=== PATIENT | male | born 1955 | race African-American/Black ===

== ENCOUNTER 2019-08-27 23:49 | Inpatient (IN) | payer MEDICARE, OTHER ==
[~2019-08-27] VITALS: Ht 182.9 cm; Wt 84.8 kg
[2019-08-28] VITALS (8 sets, daily range): BP systolic 106–150; BP diastolic 54–88
[2019-08-28] MEDS ORDERED: NITROGLYCERIN OINT 1GM/INCH UDPKT TD ONE (00:15)
[2019-08-28] MEDS ORDERED: FUROSEMIDE 40MG/4ML VIAL IV ONE (00:15)
[2019-08-28 01:02] LABS: HEMATOCRIT. 40.6 % (42.0-52.0); HEMOGLOBIN. 12.6 g/dL (14.0-18.0); MEAN CORPUSCULAR HEMOGLOBIN 25.7 pg (28.0-32.0); MEAN CORPUSCULAR VOLUME 82.5 fL (80.0-94.0); MEAN PLATELET VOLUME 8.7 fl (7.4-10.4); PLATELET 357 x1000/uL (130-400); RED BLOOD CELL COUNT 4.91 mill/uL (4.7-6.1); RED CELL DISTRIBUTION WIDTH 16.9 % (11.6-14.6)
[2019-08-28 01:06] LABS: CHLORIDE 104 mEq/L (98-107)
[2019-08-28] MEDS ORDERED: ASPIRIN 325MG EC TABLET PO ONE (02:15)
[2019-08-28 03:58] LABS: PLATELET ESTIMATE NORMAL
[2019-08-28] MEDS ORDERED: NITROGLYCERIN 0.4MG TABLET SL SL ONE (06:45)
[2019-08-28] MEDS ORDERED: DIPHENHYDRAMINE 50MG/ML VIAL IV PRN (07:45)
[2019-08-28] MEDS ORDERED: MORPHINE SULFATE 2 MG/ML CPJ (NOT FOR IM USE) IV PRN (07:45)
[2019-08-28] MEDS ORDERED: NA PHOS,M-B/NA PHOS,DI-BA ENEMA 118ML PR PRN (07:45)
[2019-08-28] MEDS ORDERED: MAGNESIUM/ALUMINUM HYDROXIDE/SIMETHICONE 30ML UDC PO PRN (07:45)
[2019-08-28] MEDS ORDERED: LORAZEPAM 2MG/ML CPJ IV PRN (07:45)
[2019-08-28] MEDS ORDERED: CLONIDINE 0.1MG TABLET PO PRN (07:45)
[2019-08-28] MEDS ORDERED: GUAIFENESIN 200MG/10ML SUGAR FREE UDC PO PRN (07:45)
[2019-08-28] MEDS ORDERED: ONDANSETRON HCL 4MG/2ML INJ IV PRN (07:45)
[2019-08-28] MEDS ORDERED: HYDROCODONE/ACETAMINOPHEN 5/325MG TABLET PO PRN (07:45)
[2019-08-28] MEDS ORDERED: ACETAMINOPHEN 325MG TABLET PO PRN (07:45)
[2019-08-28] MEDS: IPRATROPIUM/ALBUTEROL 0.5-3(2.5)MG/3ML NEB NEB PRN ×2 (10:51→13:19)
[2019-08-28] MEDS ORDERED: METHYLPREDNISOLONE SOD SUCC 125 MG/2 ML VIAL IV SCH (12:00)
[2019-08-28] MEDS: FUROSEMIDE 40MG/4ML VIAL IV SCH (13:13)
[2019-08-28] MEDS: ENOXAPARIN 40MG/0.4ML SYR SUBCUT SCH (13:14)
[2019-08-28] MEDS: LEVOFLOXACIN 500MG PREMIX 100 ML IV SCH (13:28)
[2019-08-28 16:32] LABS: BG BASE EXCESS 3.7 mmol/L (-2.0-2.0); BG BILEVEL POS AIRWAY PRESSURE 15/5; BG DEOXYHEMOGLOBIN 3.6 % (0.0-5.0); BG FRACTION INSPIRED OXYGEN 60; BG METHEMOGLOBIN 0.5 % (0.0-1.5); BG OXYGEN SATURATION 96.3 % (92.0-98.5); BG OXYHEMOGLOBIN 94.9 % (94.0-97.0); BG PCO2 75.5 mmHg (35.0-45.0); BG PH 7.258 (7.350-7.450); BG PO2 99.1 mmHg (75.0-100.0); BG SAMPLE SITE RIGHT RADIAL; BG TOTAL HEMOGLOBIN 12.5 g/dL (12.0-18.0); BG VENT MODE MASK - BIPAP; BG VENT RATE 15 set
[2019-08-28 16:58] LABS: CHLORIDE 105 mEq/L (98-107)
[2019-08-28] MEDS: IPRATROPIUM/ALBUTEROL 0.5-3(2.5)MG/3ML NEB HHN SCH ×2 (17:06→20:11)
[2019-08-28 17:09] LABS: CREATINE KINASE 265 IU/L (39-308)
[2019-08-28 17:11] LABS: CREATINE KINASE MB FRACTION 2.5 ng/mL (0.5-3.6)
[2019-08-28] MEDS: METHYLPREDNISOLONE SOD SUCC 40 MG/ML VIAL IV SCH ×2 (18:31→23:47)
[2019-08-28 21:26] LABS: BG BASE EXCESS 3.2 mmol/L (-2.0-2.0); BG BILEVEL POS AIRWAY PRESSURE 15/5; BG CARBOXYHEMOGLOBIN 1.1 % (0.5-1.5); BG DEOXYHEMOGLOBIN 12.6 % (0.0-5.0); BG FRACTION INSPIRED OXYGEN 60; BG HCO3 ACT 30.1 mmol/L (22.0-26.0); BG METHEMOGLOBIN 0.4 % (0.0-1.5); BG OXYGEN SATURATION 87.2 % (92.0-98.5); BG OXYHEMOGLOBIN 85.9 % (94.0-97.0); BG PCO2 56.6 mmHg (35.0-45.0); BG PH 7.344 (7.350-7.450); BG PO2 56.2 mmHg (75.0-100.0); BG SAMPLE SITE RIGHT RADIAL; BG TOTAL HEMOGLOBIN 12.9 g/dL (12.0-18.0); BG VENT MODE MASK - BIPAP
[2019-08-28 23:50] LABS: CREATINE KINASE MB FRACTION 1.4 ng/mL (0.5-3.6)
[2019-08-29] VITALS (12 sets, daily range): BP systolic 113–146; BP diastolic 57–89
[2019-08-29] MEDS: IPRATROPIUM/ALBUTEROL 0.5-3(2.5)MG/3ML NEB HHN SCH ×6 (00:12→21:00)
[2019-08-29] MEDS: METHYLPREDNISOLONE SOD SUCC 40 MG/ML VIAL IV SCH ×3 (05:57→17:27)
[2019-08-29 06:41] LABS: HEMATOCRIT. 36.8 % (42.0-52.0); HEMOGLOBIN. 11.3 g/dL (14.0-18.0); MEAN CORPUSCULAR HEMOGLOBIN 25.6 pg (28.0-32.0); MEAN CORPUSCULAR VOLUME 83.3 fL (80.0-94.0); MEAN PLATELET VOLUME 8.8 fl (7.4-10.4); PLATELET 308 x1000/uL (130-400); RED BLOOD CELL COUNT 4.42 mill/uL (4.7-6.1); RED CELL DISTRIBUTION WIDTH 16.5 % (11.6-14.6)
[2019-08-29 08:11] LABS: CHLORIDE 103 mEq/L (98-107)
[2019-08-29 08:25] LABS: CREATINE KINASE 156 IU/L (39-308); LDL CHOLESTEROL 48 mg/dL (5-100)
[2019-08-29 08:26] LABS: CREATINE KINASE MB FRACTION 1.1 ng/mL (0.5-3.6); HDL CHOLESTEROL 34 mg/dL (40-59)
[2019-08-29 08:27] LABS: T4 FREE 1.16 ng/dL (0.76-1.46)
[2019-08-29 09:08] LABS: PLATELET ESTIMATE NORMAL
[2019-08-29] MEDS: FUROSEMIDE 40MG/4ML VIAL IV SCH (09:56)
[2019-08-29] MEDS: ASPIRIN 81MG EC TABLET PO SCH (09:56)
[2019-08-29] MEDS: ENOXAPARIN 40MG/0.4ML SYR SUBCUT SCH (12:11)
[2019-08-29] MEDS: LEVOFLOXACIN 500MG PREMIX 100 ML IV SCH (14:42)
[2019-08-30] VITALS (9 sets, daily range): BP systolic 113–162; BP diastolic 37–93
[2019-08-30] MEDS: IPRATROPIUM/ALBUTEROL 0.5-3(2.5)MG/3ML NEB HHN SCH ×5 (00:52→20:00)
[2019-08-30] MEDS: METHYLPREDNISOLONE SOD SUCC 40 MG/ML VIAL IV SCH ×3 (01:22→12:02)
[2019-08-30 06:18] LABS: HEMATOCRIT. 37.2 % (42.0-52.0); HEMOGLOBIN. 11.6 g/dL (14.0-18.0); MEAN CORPUSCULAR HEMOGLOBIN 25.8 pg (28.0-32.0); MEAN CORPUSCULAR VOLUME 82.7 fL (80.0-94.0); MEAN PLATELET VOLUME 8.8 fl (7.4-10.4); PLATELET 353 x1000/uL (130-400); RED BLOOD CELL COUNT 4.49 mill/uL (4.7-6.1); RED CELL DISTRIBUTION WIDTH 16.5 % (11.6-14.6)
[2019-08-30 06:40] LABS: CHLORIDE 101 mEq/L (98-107)
[2019-08-30] MEDS: FUROSEMIDE 40MG/4ML VIAL IV SCH (08:46)
[2019-08-30] MEDS: ASPIRIN 81MG EC TABLET PO SCH (08:46)
[2019-08-30 09:30] LABS: BG BASE EXCESS 7.7 mmol/L (-2.0-2.0); BG CARBOXYHEMOGLOBIN 0.5 % (0.5-1.5); BG DEOXYHEMOGLOBIN 12.3 % (0.0-5.0); BG FRACTION INSPIRED OXYGEN 36; BG METHEMOGLOBIN 0.3 % (0.0-1.5); BG OXYGEN SATURATION 87.6 % (92.0-98.5); BG OXYHEMOGLOBIN 86.9 % (94.0-97.0); BG PCO2 69.7 mmHg (35.0-45.0); BG PH 7.331 (7.350-7.450); BG PO2 54.6 mmHg (75.0-100.0); BG SAMPLE SITE LEFT BRACHIAL; BG TOTAL HEMOGLOBIN 12.8 g/dL (12.0-18.0); BG VENT MODE NASAL CANNULA
[2019-08-30 11:01] LABS: PLATELET ESTIMATE NORMAL
[2019-08-30] MEDS: ENOXAPARIN 40MG/0.4ML SYR SUBCUT SCH (12:02)
[2019-08-30] MEDS: LEVOFLOXACIN 500MG PREMIX 100 ML IV SCH (13:20)
[2019-08-30 15:42] LABS: BG BASE EXCESS 10.4 mmol/L (-2.0-2.0); BG CARBOXYHEMOGLOBIN 0.9 % (0.5-1.5); BG DEOXYHEMOGLOBIN 3.7 % (0.0-5.0); BG HCO3 ACT 38.2 mmol/L (22.0-26.0); BG METHEMOGLOBIN 0.3 % (0.0-1.5); BG OXYGEN SATURATION 96.3 % (92.0-98.5); BG OXYHEMOGLOBIN 95.1 % (94.0-97.0); BG PH 7.374 (7.350-7.450); BG PO2 82.9 mmHg (75.0-100.0); BG SAMPLE SITE RIGHT RADIAL; BG TOTAL HEMOGLOBIN 13.1 g/dL (12.0-18.0); BG VENT MODE VAPOTHERM
[2019-08-30] MEDS: PREDNISONE 20MG TABLET PO SCH (17:54)
[2019-08-31] VITALS (7 sets, daily range): BP systolic 134–157; BP diastolic 66–96
[2019-08-31] MEDS: IPRATROPIUM/ALBUTEROL 0.5-3(2.5)MG/3ML NEB HHN SCH ×5 (01:02→20:56)
[2019-08-31] MEDS: PREDNISONE 20MG TABLET PO SCH ×2 (08:54→17:15)
[2019-08-31] MEDS: ASPIRIN 81MG EC TABLET PO SCH (08:54)
[2019-08-31] MEDS ORDERED: LIDOCAINE HCL 1% 20ML VIAL (Pyxis) INJ ONE (12:04)
[2019-08-31] MEDS: LEVOFLOXACIN 500MG TABLET PO SCH (13:06)
[2019-08-31] MEDS: ENOXAPARIN 40MG/0.4ML SYR SUBCUT SCH (13:06)
[2019-08-31] MEDS: FUROSEMIDE 40MG TABLET PO SCH (13:07)
[2019-08-31] MEDS: BUDESONIDE 0.5MG/2ML NEB HHN SCH ×2 (17:31→20:56)
[2019-08-31] MEDS: GUAIFENESIN 600MG ER TABLET PO SCH (22:02)
[2019-09-01] VITALS (10 sets, daily range): BP systolic 120–164; BP diastolic 43–91
[2019-09-01] MEDS: IPRATROPIUM/ALBUTEROL 0.5-3(2.5)MG/3ML NEB HHN SCH ×6 (00:30→20:47)
[2019-09-01 07:22] LABS: HEMATOCRIT. 38.2 % (42.0-52.0); HEMOGLOBIN. 11.9 g/dL (14.0-18.0); MEAN CORPUSCULAR HEMOGLOBIN 25.6 pg (28.0-32.0); MEAN CORPUSCULAR VOLUME 82.4 fL (80.0-94.0); MEAN PLATELET VOLUME 9.2 fl (7.4-10.4); PLATELET 334 x1000/uL (130-400); RED BLOOD CELL COUNT 4.64 mill/uL (4.7-6.1); RED CELL DISTRIBUTION WIDTH 16.6 % (11.6-14.6)
[2019-09-01 07:34] LABS: CHLORIDE 99 mEq/L (98-107)
[2019-09-01] MEDS: BUDESONIDE 0.5MG/2ML NEB HHN SCH ×2 (08:00→20:47)
[2019-09-01] MEDS: GUAIFENESIN 600MG ER TABLET PO SCH ×2 (08:44→22:00)
[2019-09-01] MEDS: FUROSEMIDE 40MG TABLET PO SCH (08:44)
[2019-09-01] MEDS: ASPIRIN 81MG EC TABLET PO SCH (08:44)
[2019-09-01] MEDS: PREDNISONE 20MG TABLET PO SCH ×2 (08:44→16:08)
[2019-09-01] MEDS: LEVOFLOXACIN 500MG TABLET PO SCH (12:37)
[2019-09-01] MEDS: ENOXAPARIN 40MG/0.4ML SYR SUBCUT SCH (12:37)
[2019-09-01 13:22] LABS: BG BASE EXCESS 14.2 mmol/L (-2.0-2.0); BG CARBOXYHEMOGLOBIN 1.1 % (0.5-1.5); BG HCO3 ACT 42.9 mmol/L (22.0-26.0); BG METHEMOGLOBIN 0.3 % (0.0-1.5); BG OXYGEN SATURATION 91.9 % (92.0-98.5); BG OXYHEMOGLOBIN 90.6 % (94.0-97.0); BG PCO2 73.8 mmHg (35.0-45.0); BG PH 7.382 (7.350-7.450); BG PO2 63.9 mmHg (75.0-100.0); BG SAMPLE SITE RIGHT RADIAL; BG TOTAL HEMOGLOBIN 13.7 g/dL (12.0-18.0); BG VENT MODE VAPOTHERM
[2019-09-01] MEDS ORDERED: METHYLPREDNISOLONE SOD SUCC 40 MG/ML VIAL IV SCH (15:00)
[2019-09-01 15:26] LABS: PLATELET ESTIMATE NORMAL
[2019-09-02] VITALS (10 sets, daily range): BP systolic 112–150; BP diastolic 47–84
[2019-09-02] MEDS: IPRATROPIUM/ALBUTEROL 0.5-3(2.5)MG/3ML NEB HHN SCH ×6 (00:38→20:06)
[2019-09-02] MEDS: GUAIFENESIN 600MG ER TABLET PO SCH ×2 (08:21→21:06)
[2019-09-02] MEDS: FUROSEMIDE 40MG TABLET PO SCH (08:21)
[2019-09-02] MEDS: ASPIRIN 81MG EC TABLET PO SCH (08:22)
[2019-09-02] MEDS: PREDNISONE 20MG TABLET PO SCH (08:22)
[2019-09-02] MEDS: BUDESONIDE 0.5MG/2ML NEB HHN SCH ×2 (08:53→20:06)
[2019-09-02] MEDS: LEVOFLOXACIN 500MG TABLET PO SCH (12:57)
[2019-09-02] MEDS: ENOXAPARIN 40MG/0.4ML SYR SUBCUT SCH (12:57)
[2019-09-02] MEDS: ACETYLCYSTEINE 100MG/ML 10% VIAL 4ML INH SCH (16:35)
[2019-09-03] VITALS (7 sets, daily range): BP systolic 110–138; BP diastolic 51–77
[2019-09-03] MEDS: IPRATROPIUM/ALBUTEROL 0.5-3(2.5)MG/3ML NEB HHN SCH ×6 (00:17→20:29)
[2019-09-03] MEDS: ACETYLCYSTEINE 100MG/ML 10% VIAL 4ML INH SCH ×3 (00:17→16:04)
[2019-09-03 06:20] LABS: BASOPHILS % 0.7 % (0.0-2.0); EOSINOPHILS % 5.9 % (0.0-5.0); HEMATOCRIT. 43.9 % (42.0-52.0); HEMOGLOBIN. 13.8 g/dL (14.0-18.0); LYMPHOCYTES % 15.2 % (20.0-50.0); MEAN CORPUSCULAR HEMOGLOBIN 25.6 pg (28.0-32.0); MEAN CORPUSCULAR VOLUME 81.3 fL (80.0-94.0); MEAN PLATELET VOLUME 8.6 fl (7.4-10.4); MONOCYTES % 11.2 % (2.0-8.0); PLATELET 342 x1000/uL (130-400); RED BLOOD CELL COUNT 5.39 mill/uL (4.7-6.1); RED CELL DISTRIBUTION WIDTH 16.6 % (11.6-14.6)
[2019-09-03 06:28] LABS: CHLORIDE 96 mEq/L (98-107)
[2019-09-03] MEDS: BUDESONIDE 0.5MG/2ML NEB HHN SCH (08:42)
[2019-09-03] MEDS: ASPIRIN 81MG EC TABLET PO SCH (09:25)
[2019-09-03] MEDS: GUAIFENESIN 600MG ER TABLET PO SCH ×2 (09:25→21:21)
[2019-09-03] MEDS: PREDNISONE 20MG TABLET PO SCH (09:25)
[2019-09-03] MEDS: FUROSEMIDE 40MG TABLET PO SCH (09:25)
[2019-09-03] MEDS: LEVOFLOXACIN 500MG TABLET PO SCH (12:13)
[2019-09-03] MEDS: ENOXAPARIN 40MG/0.4ML SYR SUBCUT SCH (12:14)
[2019-09-04] VITALS (10 sets, daily range): BP systolic 104–195; BP diastolic 50–129
[2019-09-04] MEDS: IPRATROPIUM/ALBUTEROL 0.5-3(2.5)MG/3ML NEB HHN SCH ×6 (00:36→20:29)
[2019-09-04] MEDS: ACETYLCYSTEINE 100MG/ML 10% VIAL 4ML INH SCH ×3 (00:36→15:57)
[2019-09-04 06:32] LABS: BASOPHILS % 0.3 % (0.0-2.0); HEMATOCRIT. 41.3 % (42.0-52.0); HEMOGLOBIN. 12.9 g/dL (14.0-18.0); LYMPHOCYTES % 13.5 % (20.0-50.0); MEAN CORPUSCULAR HEMOGLOBIN 25.5 pg (28.0-32.0); MEAN CORPUSCULAR VOLUME 81.3 fL (80.0-94.0); MEAN PLATELET VOLUME 9.2 fl (7.4-10.4); MONOCYTES % 10.1 % (2.0-8.0); NEUTROPHILS % 71.1 % (40.0-76.0); PLATELET 311 x1000/uL (130-400); RED BLOOD CELL COUNT 5.07 mill/uL (4.7-6.1); RED CELL DISTRIBUTION WIDTH 16.8 % (11.6-14.6)
[2019-09-04 06:36] LABS: CHLORIDE 95 mEq/L (98-107)
[2019-09-04 07:38] LABS: BG BASE EXCESS 9.7 mmol/L (-2.0-2.0); BG CARBOXYHEMOGLOBIN 0.6 % (0.5-1.5); BG DEOXYHEMOGLOBIN 4.5 % (0.0-5.0); BG HCO3 ACT 37.4 mmol/L (22.0-26.0); BG METHEMOGLOBIN 0.2 % (0.0-1.5); BG OXYGEN SATURATION 95.5 % (92.0-98.5); BG OXYHEMOGLOBIN 94.7 % (94.0-97.0); BG PCO2 64.8 mmHg (35.0-45.0); BG PH 7.379 (7.350-7.450); BG SAMPLE SITE RIGHT RADIAL; BG TOTAL HEMOGLOBIN 13.7 g/dL (12.0-18.0); BG VENT MODE VAPOTHERM
[2019-09-04] MEDS ORDERED: LIDOCAINE HCL/PF 1% 2ML VIAL ONE (09:21)
[2019-09-04] MEDS: PREDNISONE 20MG TABLET PO SCH (09:56)
[2019-09-04] MEDS: ASPIRIN 81MG EC TABLET PO SCH (09:56)
[2019-09-04] MEDS: GUAIFENESIN 600MG ER TABLET PO SCH ×2 (09:56→21:40)
[2019-09-04] MEDS: FUROSEMIDE 40MG TABLET PO SCH (09:56)
[2019-09-04] MEDS: ENOXAPARIN 40MG/0.4ML SYR SUBCUT SCH (12:37)
[2019-09-04] MEDS: DOCUSATE SODIUM 100MG CAPSULE PO PRN (12:46)
[2019-09-04] MEDS: LEVOFLOXACIN 500MG TABLET PO SCH (12:46)
[2019-09-05] VITALS (9 sets, daily range): BP systolic 101–146; BP diastolic 61–89
[2019-09-05] MEDS: ACETYLCYSTEINE 100MG/ML 10% VIAL 4ML INH SCH ×3 (00:55→16:17)
[2019-09-05] MEDS: IPRATROPIUM/ALBUTEROL 0.5-3(2.5)MG/3ML NEB HHN SCH ×6 (00:56→20:26)
[2019-09-05 07:30] LABS: BASOPHILS % 0.8 % (0.0-2.0); EOSINOPHILS % 5.6 % (0.0-5.0); HEMATOCRIT. 40.3 % (42.0-52.0); HEMOGLOBIN. 12.6 g/dL (14.0-18.0); LYMPHOCYTES % 15.5 % (20.0-50.0); MEAN CORPUSCULAR HEMOGLOBIN 25.4 pg (28.0-32.0); MEAN CORPUSCULAR VOLUME 81.3 fL (80.0-94.0); MONOCYTES % 12.5 % (2.0-8.0); NEUTROPHILS % 65.6 % (40.0-76.0); PLATELET 300 x1000/uL (130-400); RED BLOOD CELL COUNT 4.96 mill/uL (4.7-6.1); RED CELL DISTRIBUTION WIDTH 16.7 % (11.6-14.6)
[2019-09-05 07:40] LABS: CHLORIDE 99 mEq/L (98-107)
[2019-09-05] MEDS: FUROSEMIDE 40MG TABLET PO SCH (08:06)
[2019-09-05] MEDS: ASPIRIN 81MG EC TABLET PO SCH (08:06)
[2019-09-05] MEDS: PREDNISONE 20MG TABLET PO SCH (08:06)
[2019-09-05] MEDS: GUAIFENESIN 600MG ER TABLET PO SCH ×2 (08:06→21:14)
[2019-09-05] MEDS: ENOXAPARIN 40MG/0.4ML SYR SUBCUT SCH (13:13)
[2019-09-05] MEDS: LEVOFLOXACIN 500MG TABLET PO SCH (13:13)
[2019-09-05 15:10] LABS: BG BASE EXCESS 7.6 mmol/L (-2.0-2.0); BG CARBOXYHEMOGLOBIN 0.7 % (0.5-1.5); BG DEOXYHEMOGLOBIN 6.9 % (0.0-5.0); BG FRACTION INSPIRED OXYGEN 28; BG HCO3 ACT 34.3 mmol/L (22.0-26.0); BG METHEMOGLOBIN 0.4 % (0.0-1.5); BG PCO2 56.7 mmHg (35.0-45.0); BG PH 7.399 (7.350-7.450); BG PO2 68.2 mmHg (75.0-100.0); BG SAMPLE SITE RIGHT RADIAL; BG TOTAL HEMOGLOBIN 13.6 g/dL (12.0-18.0); BG VENT MODE NASAL CANNULA
[2019-09-05] MEDS: DOCUSATE SODIUM 100MG CAPSULE PO PRN (21:14)
[2019-09-06] VITALS (11 sets, daily range): BP systolic 99–140; BP diastolic 29–80
[2019-09-06] MEDS: IPRATROPIUM/ALBUTEROL 0.5-3(2.5)MG/3ML NEB HHN SCH ×5 (01:01→16:32)
[2019-09-06] MEDS: ACETYLCYSTEINE 100MG/ML 10% VIAL 4ML INH SCH ×3 (01:01→16:32)
[2019-09-06] MEDS: GUAIFENESIN 600MG ER TABLET PO SCH (08:02)
[2019-09-06] MEDS: ASPIRIN 81MG EC TABLET PO SCH (08:03)
[2019-09-06] MEDS: FUROSEMIDE 40MG TABLET PO SCH (08:03)
[2019-09-06] MEDS ORDERED: PREDNISONE 20MG TABLET PO SCH (09:00)
[2019-09-06 11:44] LABS: BASOPHILS % 0.6 % (0.0-2.0); EOSINOPHILS % 4.2 % (0.0-5.0); HEMATOCRIT. 40.2 % (42.0-52.0); HEMOGLOBIN. 12.7 g/dL (14.0-18.0); LYMPHOCYTES % 10.2 % (20.0-50.0); MEAN CORPUSCULAR HEMOGLOBIN 25.9 pg (28.0-32.0); MEAN CORPUSCULAR VOLUME 81.7 fL (80.0-94.0); MEAN PLATELET VOLUME 9.2 fl (7.4-10.4); MONOCYTES % 10.3 % (2.0-8.0); NEUTROPHILS % 74.7 % (40.0-76.0); PLATELET 295 x1000/uL (130-400); RED BLOOD CELL COUNT 4.92 mill/uL (4.7-6.1); RED CELL DISTRIBUTION WIDTH 16.8 % (11.6-14.6)
[2019-09-06 12:21] LABS: CHLORIDE 97 mEq/L (98-107)
[2019-09-06] MEDS: LEVOFLOXACIN 500MG TABLET PO SCH (12:48)
[2019-09-06] MEDS: ENOXAPARIN 40MG/0.4ML SYR SUBCUT SCH (12:49)
== END 2019-09-06 20:30 | DRG 871 ==
LOC: ER 08-28 00:27 → EDBEDREQTM 08-28 04:10 → EDBEDREQ 08-28 04:10 → ENRESERV 08-28 07:01 → CANRESERV 08-28 07:01 → ENRESERV 08-28 07:48 → 5EST 08-28 11:22
PROVIDERS: ADMIT Internal Medicine; ATTEND Internal Medicine
PROC: 5A09457 Assistance with Respiratory Ventilation, 24-96 Consecutive Hours, Continuous Positive Airway Pressure (ICD-10-PCS; principal; 2019-08-28)
PROC: 5A09357 Assistance with Respiratory Ventilation, Less than 24 Consecutive Hours, Continuous Positive Airway Pressure (ICD-10-PCS; 2019-09-01)
DX: A41.9 Sepsis, unspecified organism (principal); I50.43 Acute on chronic combined systolic (congestive) and diastolic (congestive) heart failure; J96.21 Acute and chronic respiratory failure with hypoxia; J96.22 Acute and chronic respiratory failure with hypercapnia; G82.50 Quadriplegia, unspecified; J18.1 Lobar pneumonia, unspecified organism; J44.1 Chronic obstructive pulmonary disease with (acute) exacerbation; E44.1 Mild protein-calorie malnutrition; J44.0 Chronic obstructive pulmonary disease with (acute) lower respiratory infection; E87.2 Acidosis; N39.0 Urinary tract infection, site not specified; I11.0 Hypertensive heart disease with heart failure; E11.9 Type 2 diabetes mellitus without complications; E78.5 Hyperlipidemia, unspecified; I25.10 Atherosclerotic heart disease of native coronary artery without angina pectoris; I27.20 Pulmonary hypertension, unspecified; F03.90 Unspecified dementia, unspecified severity, without behavioral disturbance, psychotic disturbance, mood disturbance, and anxiety; R13.10 Dysphagia, unspecified; Z87.891 Personal history of nicotine dependence; Z91.19 Patient's noncompliance with other medical treatment and regimen; Z99.81 Dependence on supplemental oxygen; Z68.25 Body mass index [BMI] 25.0-25.9, adult
CPT/HCPCS: 36415; 36600; 71045; 71250; 80048; 80061; 82375; 82550; 82553; 82805; 83036; 83880; 84439; 84443; 84484; 85379; 92950; 93005; 93306; 93970; 94640; 94660; 94667; 97162; 99285; J1200; J1650; J1940; J1956; J2920; J2930; J3490; J7512; J7608; J7620; J7626

== ENCOUNTER 2022-08-22 12:11 | Inpatient (IN) | payer MEDICARE, OTHER ==
[~2022-08-22] VITALS: Ht 170.2 cm; Wt 94.3 kg
[2022-08-22] MEDS ORDERED: ALBUTEROL (0.083%) 2.5MG/3ML NEB HHN STA (13:53)
[2022-08-22] MEDS ORDERED: METHYLPREDNISOLONE SOD SUCC 125 MG/2 ML VIAL IV STA (13:53)
[2022-08-22] MEDS ORDERED: IPRATROPIUM BROMIDE (0.02%) 0.5MG/2.5ML NEB HHN STA (13:53)
[2022-08-22] MEDS ORDERED: FUROSEMIDE 40MG/4ML VIAL IV ONE (14:00)
[2022-08-22 14:24] LABS: BG BASE EXCESS 1.7 mmol/L (-2.0-2.0); BG CARBOXYHEMOGLOBIN 2.2 % (0.5-1.5); BG DEOXYHEMOGLOBIN 13.7 % (0.0-5.0); BG FRACTION INSPIRED OXYGEN 40; BG HCO3 ACT 32.4 mmol/L (22.0-26.0); BG METHEMOGLOBIN 0.3 % (0.0-1.5); BG OXYGEN SATURATION 85.9 % (92.0-98.5); BG OXYHEMOGLOBIN 83.8 % (94.0-97.0); BG PCO2 82.4 mmHg (35.0-45.0); BG PH 7.212 (7.350-7.450); BG PO2 61.7 mmHg (75.0-100.0); BG SAMPLE SITE RIGHT RADIAL; BG TOTAL HEMOGLOBIN 14.8 g/dL (12.0-18.0); BG VENT MODE NASAL CANNULA
[2022-08-22 15:48] LABS: HEMATOCRIT. 41.1 % (42.0-52.0); HEMOGLOBIN. 12.6 g/dL (14.0-18.0); MEAN CORPUSCULAR HEMOGLOBIN 26.7 pg (28.0-32.0); MEAN CORPUSCULAR VOLUME 86.7 fL (80.0-94.0); MEAN PLATELET VOLUME 9.7 fl (7.4-10.4); PLATELET 262 x1000/uL (130-400); RED BLOOD CELL COUNT 4.74 mill/uL (4.7-6.1); RED CELL DISTRIBUTION WIDTH 17.7 % (11.6-14.6)
[2022-08-22 15:55] LABS: CHLORIDE 103 mEq/L (98-107)
[2022-08-22 16:05] LABS: ETHANOL BLOOD < 10 mg/dL
[2022-08-22 17:31] LABS: PLATELET ESTIMATE NORMAL
[2022-08-22 18:14] LABS: BG BASE EXCESS 1.5 mmol/L (-2.0-2.0); BG CARBOXYHEMOGLOBIN 1.7 % (0.5-1.5); BG DEOXYHEMOGLOBIN 6.9 % (0.0-5.0); BG FRACTION INSPIRED OXYGEN 70; BG HCO3 ACT 31.2 mmol/L (22.0-26.0); BG METHEMOGLOBIN 0.2 % (0.0-1.5); BG OXYHEMOGLOBIN 91.2 % (94.0-97.0); BG PCO2 73.3 mmHg (35.0-45.0); BG PH 7.247 (7.350-7.450); BG PO2 76.4 mmHg (75.0-100.0); BG SAMPLE SITE RIGHT BRACHIAL; BG TOTAL HEMOGLOBIN 15.4 g/dL (12.0-18.0); BG VENT MODE MASK - BIPAP
[2022-08-22 22:00] VITALS: BP_SYST 116; BP_SYST 117; BP_DIAS 68; BP_DIAS 75
[2022-08-22] MEDS ORDERED: PNEUMOCOCCAL 23-VAL P-SAC VAC 0.5 ML IM ONE (22:45)
[2022-08-22] MEDS ORDERED: INFLUENZA VACCINE 05/PF 0.5 ML SYRINGE IM ONE (22:45)
[2022-08-22] MEDS ORDERED: HYDROCODONE/ACETAMINOPHEN 5/325MG TABLET PO PRN (23:15)
[2022-08-22] MEDS ORDERED: IPRATROPIUM/ALBUTEROL 0.5-3(2.5)MG/3ML NEB HHN PRN (23:15)
[2022-08-22] MEDS ORDERED: DEXTROSE 50% WATER 50ML SYRINGE IV PRN (23:30)
[2022-08-22] MEDS ORDERED: NALOXONE HCL 0.4MG/ML VIAL IV PRN (23:45)
[2022-08-23] VITALS (32 sets, daily range): BP systolic 76–120; BP diastolic 41–90
[2022-08-23 06:38] LABS: BASOPHILS % 0.4 % (0.0-2.0); EOSINOPHILS % 0.1 % (0.0-5.0); HEMATOCRIT. 47.3 % (42.0-52.0); HEMOGLOBIN. 14.5 g/dL (14.0-18.0); LYMPHOCYTES % 7.4 % (20.0-50.0); MEAN CORPUSCULAR HEMOGLOBIN 26.6 pg (28.0-32.0); MEAN CORPUSCULAR VOLUME 86.8 fL (80.0-94.0); MEAN PLATELET VOLUME 9.3 fl (7.4-10.4); MONOCYTES % 13.3 % (2.0-8.0); NEUTROPHILS % 78.8 % (40.0-76.0); PLATELET 233 x1000/uL (130-400); RED BLOOD CELL COUNT 5.45 mill/uL (4.7-6.1); RED CELL DISTRIBUTION WIDTH 17.8 % (11.6-14.6)
[2022-08-23] MEDS: BLOOD SUGAR DIAGNOSTIC STRIP TEST SCH ×4 (06:50→21:05)
[2022-08-23] MEDS: INSULIN LISPRO 100 UNITS/ML SUBCUT SCH ×4 (07:20→21:00)
[2022-08-23] MEDS: FUROSEMIDE 40MG/4ML VIAL IVP SCH ×2 (08:12→21:05)
[2022-08-23] MEDS: ASPIRIN 81MG TABLET PO SCH (08:12)
[2022-08-23] MEDS: ENOXAPARIN 30MG/0.3ML SYR SUBCUT SCH ×2 (08:13→21:05)
[2022-08-23] MEDS ORDERED: METOPROLOL TARTRATE 25MG TABLET PO SCH (09:00)
[2022-08-23] MEDS ORDERED: LISINOPRIL 10MG TABLET PO SCH (09:00)
[2022-08-23] MEDS: MIDODRINE HCL 5MG TABLET PO SCH ×2 (12:54→16:45)
[2022-08-23 13:00] LABS: BG BASE EXCESS 3.2 mmol/L (-2.0-2.0); BG CARBOXYHEMOGLOBIN 1.4 % (0.5-1.5); BG DEOXYHEMOGLOBIN 38.9 % (0.0-5.0); BG FRACTION INSPIRED OXYGEN 21; BG HCO3 ACT 29.8 mmol/L (22.0-26.0); BG METHEMOGLOBIN 0.1 % (0.0-1.5); BG OXYGEN SATURATION 60.5 % (92.0-98.5); BG OXYHEMOGLOBIN 59.6 % (94.0-97.0); BG PCO2 53.3 mmHg (35.0-45.0); BG PH 7.366 (7.350-7.450); BG SAMPLE SITE LEFT RADIAL; BG TOTAL HEMOGLOBIN 15.2 g/dL (12.0-18.0); BG VENT MODE ROOM AIR
[2022-08-23 17:18] LABS: *AMPHETAMINES SCREEN URINE NEGATIVE (NEGATIVE); *BARBITURATES SCREEN URINE NEGATIVE (NEGATIVE); *BENZODIAZEPINES SCREEN URINE NEGATIVE (NEGATIVE); *COCAINE SCREEN URINE NEGATIVE (NEGATIVE); CANNABINOID URINE SCREEN NEGATIVE (NEGATIVE); METHADONE URINE SCREEN NEGATIVE (NEGATIVE); OPIATES URINE SCREEN NEGATIVE (NEGATIVE); PHENCYCLIDINE URINE SCREEN NEGATIVE (NEGATIVE)
[2022-08-23] MEDS: METHYLPREDNISOLONE SOD SUCC 40 MG/ML VIAL IV SCH (17:53)
[2022-08-23] MEDS: IPRATROPIUM/ALBUTEROL 0.5-3(2.5)MG/3ML NEB HHN SCH ×2 (20:36→23:54)
[2022-08-23] MEDS: ATORVASTATIN CALCIUM 40MG TABLET PO SCH (21:05)
[2022-08-24] VITALS (13 sets, daily range): BP systolic 92–168; BP diastolic 41–89
[2022-08-24] MEDS: METHYLPREDNISOLONE SOD SUCC 40 MG/ML VIAL IV SCH ×3 (03:36→17:50)
[2022-08-24] MEDS: IPRATROPIUM/ALBUTEROL 0.5-3(2.5)MG/3ML NEB HHN SCH ×5 (03:46→20:46)
[2022-08-24] MEDS: BLOOD SUGAR DIAGNOSTIC STRIP TEST SCH ×4 (06:20→20:30)
[2022-08-24] MEDS: INSULIN LISPRO 100 UNITS/ML SUBCUT SCH ×4 (07:20→20:30)
[2022-08-24] MEDS: MIDODRINE HCL 5MG TABLET PO SCH (08:41)
[2022-08-24] MEDS: ASPIRIN 81MG TABLET PO SCH (08:41)
[2022-08-24] MEDS: FUROSEMIDE 40MG/4ML VIAL IVP SCH ×2 (08:41→20:29)
[2022-08-24] MEDS: ENOXAPARIN 30MG/0.3ML SYR SUBCUT SCH ×2 (08:42→20:30)
[2022-08-24 10:18] LABS: HEMATOCRIT. 46.9 % (42.0-52.0); HEMOGLOBIN. 14.6 g/dL (14.0-18.0); MEAN CORPUSCULAR HEMOGLOBIN 26.6 pg (28.0-32.0); MEAN CORPUSCULAR VOLUME 85.3 fL (80.0-94.0); MEAN PLATELET VOLUME 9.5 fl (7.4-10.4); PLATELET 261 x1000/uL (130-400); RED CELL DISTRIBUTION WIDTH 17.8 % (11.6-14.6)
[2022-08-24 14:29] LABS: PLATELET ESTIMATE NORMAL
[2022-08-24] MEDS: ATORVASTATIN CALCIUM 40MG TABLET PO SCH (20:29)
[2022-08-25] VITALS (12 sets, daily range): BP systolic 112–163; BP diastolic 19–110
[2022-08-25] MEDS: IPRATROPIUM/ALBUTEROL 0.5-3(2.5)MG/3ML NEB HHN SCH ×5 (00:28→21:01)
[2022-08-25] MEDS: METHYLPREDNISOLONE SOD SUCC 40 MG/ML VIAL IV SCH ×3 (00:48→17:27)
[2022-08-25] MEDS: BLOOD SUGAR DIAGNOSTIC STRIP TEST SCH ×4 (06:55→21:00)
[2022-08-25] MEDS: INSULIN LISPRO 100 UNITS/ML SUBCUT SCH ×4 (07:20→22:13)
[2022-08-25] MEDS: FUROSEMIDE 40MG/4ML VIAL IVP SCH ×2 (07:59→21:58)
[2022-08-25] MEDS: ENOXAPARIN 30MG/0.3ML SYR SUBCUT SCH ×2 (08:00→22:00)
[2022-08-25] MEDS: ASPIRIN 81MG TABLET PO SCH (08:00)
[2022-08-25 08:48] LABS: BG BASE EXCESS 2.9 mmol/L (-2.0-2.0); BG CARBOXYHEMOGLOBIN 1.4 % (0.5-1.5); BG DEOXYHEMOGLOBIN 13.6 % (0.0-5.0); BG FRACTION INSPIRED OXYGEN 40; BG HCO3 ACT 30.1 mmol/L (22.0-26.0); BG METHEMOGLOBIN 0.2 % (0.0-1.5); BG OXYGEN SATURATION 86.2 % (92.0-98.5); BG OXYHEMOGLOBIN 84.8 % (94.0-97.0); BG PCO2 56.2 mmHg (35.0-45.0); BG PH 7.346 (7.350-7.450); BG PO2 53.1 mmHg (75.0-100.0); BG SAMPLE SITE RIGHT RADIAL; BG TOTAL HEMOGLOBIN 14.9 g/dL (12.0-18.0); BG VENT MODE NASAL CANNULA
[2022-08-25] MEDS: ATORVASTATIN CALCIUM 40MG TABLET PO SCH (21:59)
[2022-08-26] VITALS (12 sets, daily range): BP systolic 91–176; BP diastolic 31–107
[2022-08-26] MEDS: IPRATROPIUM/ALBUTEROL 0.5-3(2.5)MG/3ML NEB HHN SCH ×5 (00:48→21:22)
[2022-08-26] MEDS: METHYLPREDNISOLONE SOD SUCC 40 MG/ML VIAL IV SCH ×3 (02:09→17:33)
[2022-08-26] MEDS: BLOOD SUGAR DIAGNOSTIC STRIP TEST SCH ×4 (06:44→21:29)
[2022-08-26] MEDS: INSULIN LISPRO 100 UNITS/ML SUBCUT SCH ×4 (07:20→21:00)
[2022-08-26] MEDS: ASPIRIN 81MG TABLET PO SCH (09:00)
[2022-08-26] MEDS: FUROSEMIDE 40MG/4ML VIAL IVP SCH ×2 (09:00→21:28)
[2022-08-26] MEDS: ENOXAPARIN 30MG/0.3ML SYR SUBCUT SCH ×2 (09:01→21:29)
[2022-08-26] MEDS: ATORVASTATIN CALCIUM 40MG TABLET PO SCH (21:28)
[2022-08-27] VITALS (12 sets, daily range): BP systolic 132–164; BP diastolic 23–97
[2022-08-27] MEDS: IPRATROPIUM/ALBUTEROL 0.5-3(2.5)MG/3ML NEB HHN SCH ×6 (01:21→20:35)
[2022-08-27] MEDS: METHYLPREDNISOLONE SOD SUCC 40 MG/ML VIAL IV SCH ×2 (06:44→18:34)
[2022-08-27] MEDS: BLOOD SUGAR DIAGNOSTIC STRIP TEST SCH ×4 (07:01→21:18)
[2022-08-27] MEDS: INSULIN LISPRO 100 UNITS/ML SUBCUT SCH ×4 (07:20→21:00)
[2022-08-27] MEDS: ASPIRIN 81MG TABLET PO SCH (08:20)
[2022-08-27] MEDS: ENOXAPARIN 30MG/0.3ML SYR SUBCUT SCH ×2 (08:20→20:58)
[2022-08-27] MEDS: FUROSEMIDE 40MG/4ML VIAL IVP SCH ×2 (08:20→20:54)
[2022-08-27] MEDS: ATORVASTATIN CALCIUM 40MG TABLET PO SCH (20:54)
[2022-08-28] VITALS (10 sets, daily range): BP systolic 124–152; BP diastolic 58–106
[2022-08-28] MEDS: IPRATROPIUM/ALBUTEROL 0.5-3(2.5)MG/3ML NEB HHN SCH ×7 (00:57→20:07)
[2022-08-28] MEDS: METHYLPREDNISOLONE SOD SUCC 40 MG/ML VIAL IV SCH ×2 (06:28→18:45)
[2022-08-28] MEDS: BLOOD SUGAR DIAGNOSTIC STRIP TEST SCH ×4 (07:06→20:18)
[2022-08-28] MEDS: INSULIN LISPRO 100 UNITS/ML SUBCUT SCH ×4 (07:06→20:17)
[2022-08-28] MEDS: ASPIRIN 81MG TABLET PO SCH (08:40)
[2022-08-28] MEDS: FUROSEMIDE 40MG/4ML VIAL IVP SCH ×2 (08:40→20:17)
[2022-08-28] MEDS: ENOXAPARIN 30MG/0.3ML SYR SUBCUT SCH ×2 (08:41→20:17)
[2022-08-28] MEDS ORDERED: FUROSEMIDE 40MG/4ML VIAL IVP NR (12:15)
[2022-08-28 12:51] LABS: BG BASE EXCESS 20.2 mmol/L (-2.0-2.0); BG DEOXYHEMOGLOBIN 33.1 % (0.0-5.0); BG FRACTION INSPIRED OXYGEN 21; BG HCO3 ACT 48.4 mmol/L (22.0-26.0); BG METHEMOGLOBIN 0.2 % (0.0-1.5); BG OXYGEN SATURATION 66.2 % (92.0-98.5); BG OXYHEMOGLOBIN 64.7 % (94.0-97.0); BG PCO2 66.5 mmHg (35.0-45.0); BG PO2 32.7 mmHg (75.0-100.0); BG SAMPLE SITE LEFT RADIAL; BG TOTAL HEMOGLOBIN 16.2 g/dL (12.0-18.0); BG VENT MODE ROOM AIR
[2022-08-28 18:58] LABS: CHLORIDE 92 mEq/L (98-107)
[2022-08-28] MEDS: ATORVASTATIN CALCIUM 40MG TABLET PO SCH (20:17)
[2022-08-29] VITALS (12 sets, daily range): BP systolic 113–168; BP diastolic 61–96
[2022-08-29] MEDS: IPRATROPIUM/ALBUTEROL 0.5-3(2.5)MG/3ML NEB HHN SCH ×5 (00:26→17:42)
[2022-08-29] MEDS: METHYLPREDNISOLONE SOD SUCC 40 MG/ML VIAL IV SCH ×3 (02:16→17:49)
[2022-08-29] MEDS: BLOOD SUGAR DIAGNOSTIC STRIP TEST SCH ×4 (06:03→21:57)
[2022-08-29] MEDS: INSULIN LISPRO 100 UNITS/ML SUBCUT SCH ×4 (06:04→21:00)
[2022-08-29 06:18] LABS: HEMATOCRIT. 47.9 % (42.0-52.0); HEMOGLOBIN. 14.9 g/dL (14.0-18.0); MEAN CORPUSCULAR HEMOGLOBIN 26.2 pg (28.0-32.0); MEAN CORPUSCULAR VOLUME 84.2 fL (80.0-94.0); MEAN PLATELET VOLUME 9.5 fl (7.4-10.4); PLATELET 209 x1000/uL (130-400); RED BLOOD CELL COUNT 5.69 mill/uL (4.7-6.1); RED CELL DISTRIBUTION WIDTH 17.7 % (11.6-14.6)
[2022-08-29] MEDS ORDERED: POTASSIUM CHLORIDE 20MEQ TABLET SR PO NR (07:20)
[2022-08-29] MEDS: FUROSEMIDE 100MG/10ML VIAL IVP SCH ×2 (09:03→17:49)
[2022-08-29] MEDS: ENOXAPARIN 30MG/0.3ML SYR SUBCUT SCH ×2 (09:03→21:57)
[2022-08-29] MEDS: ASPIRIN 81MG TABLET PO SCH (09:03)
[2022-08-29 10:01] LABS: NUCLEATED RED BLOOD CELLS 1 /100 WBC; PLATELET ESTIMATE NORMAL
[2022-08-29] MEDS: ATORVASTATIN CALCIUM 40MG TABLET PO SCH (21:56)
[2022-08-29] MEDS ORDERED: PIPERONYL/PYRETHRINS (RID) 120 ML SHAMPOO TOP NR (22:30)
[2022-08-30] VITALS (7 sets, daily range): BP systolic 118–165; BP diastolic 66–92
[2022-08-30] MEDS: METHYLPREDNISOLONE SOD SUCC 40 MG/ML VIAL IV SCH ×2 (02:58→09:57)
[2022-08-30] MEDS: INSULIN LISPRO 100 UNITS/ML SUBCUT SCH (07:20)
[2022-08-30] MEDS: BLOOD SUGAR DIAGNOSTIC STRIP TEST SCH (07:55)
[2022-08-30] MEDS: FUROSEMIDE 100MG/10ML VIAL IVP SCH (09:57)
[2022-08-30] MEDS: ENOXAPARIN 30MG/0.3ML SYR SUBCUT SCH (09:57)
[2022-08-30] MEDS: ASPIRIN 81MG TABLET PO SCH (09:57)
== END 2022-08-30 12:50 | DRG 280 ==
LOC: ER 13:03 → EDBEDREQ 15:04 → ENRESERV 18:15 → 3WST 21:11
PROVIDERS: ADMIT Internal Medicine; ATTEND Internal Medicine
PROC: 5A09457 Assistance with Respiratory Ventilation, 24-96 Consecutive Hours, Continuous Positive Airway Pressure (ICD-10-PCS; principal; 2022-08-22)
PROC: 5A09357 Assistance with Respiratory Ventilation, Less than 24 Consecutive Hours, Continuous Positive Airway Pressure (ICD-10-PCS; 2022-08-23)
PROC: 5A09357 Assistance with Respiratory Ventilation, Less than 24 Consecutive Hours, Continuous Positive Airway Pressure (ICD-10-PCS; 2022-08-24)
PROC: 5A09357 Assistance with Respiratory Ventilation, Less than 24 Consecutive Hours, Continuous Positive Airway Pressure (ICD-10-PCS; 2022-08-26)
DX: I11.0 Hypertensive heart disease with heart failure (principal); I50.33 Acute on chronic diastolic (congestive) heart failure; I21.4 Non-ST elevation (NSTEMI) myocardial infarction; J96.21 Acute and chronic respiratory failure with hypoxia; N17.0 Acute kidney failure with tubular necrosis; J96.22 Acute and chronic respiratory failure with hypercapnia; J44.1 Chronic obstructive pulmonary disease with (acute) exacerbation; E44.1 Mild protein-calorie malnutrition; E11.9 Type 2 diabetes mellitus without complications; E66.9 Obesity, unspecified; I95.9 Hypotension, unspecified; Z68.32 Body mass index [BMI] 32.0-32.9, adult; Z99.81 Dependence on supplemental oxygen; Z87.891 Personal history of nicotine dependence
CPT/HCPCS: 36415; 36600; 71045; 80048; 80053; 80061; 80305; 80320; 82375; 82805; 82962; 83036; 83605; 83880; 84484; 85025; 85379; 93005; 93306; 93970; 94640; 94660; 94664; 99291; J1650; J1815; J1940; J2920; J2930; G0480